=== PATIENT | male | born 1935 | race African-American/Black ===

== ENCOUNTER 2016-08-09 19:29 | Observation (INO) | payer OTHER ==
--- NOTE | ~2016-08-09 | DS ---
Unit #: [id number] #: [id number] Patient: KASANDRA CIFUENTES [id number] [address] [address] [id number] I MR#: [id number] NAME: KASANDRA CIFUENTES ROOM: 467 Age: 80 Sex: M Admission Date: 08/09/2016 : 1935 Discharge Date: Attending Physician: Ruthie Olvera M.D. Primary Care Physician: Oliva Hawkins M.D. DISCHARGE SUMMARY ADDENDUM DISCHARGE MEDICATIONS Please note the following additional medications at the time of discharge. 1. Flomax 0.4 mg p.o. daily. 2. Lovenox 80 mg subcutaneous b.i.d. To be discontinued when INR reaches 2.0. At the time of discharge INR 1.6. 3. Coumadin 6 mg p.o. daily. 4. Depakote sprinkles 125 mg p.o. b.i.d. 5. Keppra 500 mg p.o. b.i.d. 6. Lexapro 5 mg p.o. daily. 7. Trazodone 25 mg p.o. at nighttime. 8. Zofran 4 mg p.o. q.6 h. p.r.n. 9. Lipitor 80 mg p.o. daily. Dictated by... Ruthie Olvera M.D. ISN/gz TD: 08/11/2016 09:07 JOB #: [id number] DISCHARGE SUMMARY Page 1 of 1 X Ruthie Olvera MD X DISCHARGE SUMMARY
--- NOTE | ~2016-08-09 | CR72 ---
[facility] A Service of [facility] RADIOLOGY TEXT RESULTS PATIENT: KASANDRA CIFUENTES LOCATION: [place] [address] : 37 UNIT #: [id number] AGE: [address]: Ruthie Olvera MD SEX: M ORDER DR: [id number] [facility] [address] [place], [place] [address] [id number] I MR#: [id number] Acc #: [id number] NAME: KASANDRA CIFUENTES : 1935 SEX: M STUDY DATE/TIME: 08/09/2016 19:20 [facility] 33190 STUDY DESCRIPTION: CR Chest Single View Portable Attending Physician: Efraín Scott M.D. Ordering Physician: Kal New M.D. Primary Care Physician: Oliva Hawkins M.D. MEDICAL IMAGING REPORT This report is preliminary unless electronic signature is present EXAM Single view of the chest dated 08/09/2016 at 1920 hours COMPARISON Single view chest dated 05/13/2016 at 2243 hours. HISTORY Altered mental status, mild congestion, incoherent today. Patient was sent from [facility]. FINDINGS Single view of the chest was obtained. No acute cardiopulmonary disease. It is a poor inspiratory film. 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 Dictated by... Holly Wilde M.D. THIS IS AN ELECTRONICALLY VERIFIED REPORT Holly Wilde M.D. at 08/11/2016 1:42 PM CPR/mjs TD: 08/10/2016 13:36 JOB #: [id number] MEDICAL IMAGING REPORT Page 1 of 1 COPY
--- NOTE | ~2016-08-09 | HP ---
Unit #: [id number] #: [id number] Patient: KASANDRA CIFUENTES [id number] [address] [place], [place] [address] [id number] I MR#: [id number] NAME: KASANDRA CIFUENTES ROOM: 64666 Age: 80 Sex: M Admission Date: 08/09/2016 : 1935 Attending Physician: Efraín Scott M.D. Primary Care Physician: Oliva Hawkins M.D. HISTORY AND PHYSICAL CHIEF COMPLAINT Change in mental status, hypotension. DISCUSSION This is a 80-year-old gentleman, senior care resident with advanced dementia, unable to give me any history. Most of information obtained through the chart. History of left pontine CVA, insulin dependent diabetes, chronic kidney disease stage 3, history of A-fib, on Lovenox and Coumadin, dementia, seizure disorder, B12 deficiency, iron deficiency, anemia with history of Billroth-II, BPH, peripheral vascular disease, dyslipidemia, history of glaucoma. He was sent from senior care for evaluation of change in mental status. The patient was found to be hypotensive initially in the ER. Blood pressure 87/54, given bolus of normal saline. Blood pressure improved to 107, eventually been admitted for hypotension. His change in mental status has been improved since here in the emergency room. He is alert, awake now. He is denying any complaint but, again, he is a poor historian with a history of dementia. PAST MEDICAL HISTORY 1. History of left pontine CVA. 2. Insulin dependent diabetes. 3. Chronic kidney disease, stage 3. 4. History of A-fib. 5. Dementia. 6. History of seizures. 7. B12 deficiency. 8. Dyslipidemia. 9. Iron deficiency anemia. 10. History of EGD in June 2015. Shows postop surgical changes of Billroth-II. 11. History of peripheral vascular disease. 12. Dyslipidemia. 13. Benign prostatic hypertrophy. 14. Coronary artery disease. 15. History of glaucoma. PAST SURGICAL HISTORY 1. History of gastric bypass for ulcer, Billroth-II. 2. History of lumbar fusion. 3. History of angioplasty. SOCIAL HISTORY The patient is currently a senior care resident. No history of tobacco, alcohol or illicit drug use. Unit #: [id number] #: [id number] Patient: WHITE,KASANDRA FAMILY HISTORY Unknown. ALLERGIES Allergic to penicillin and tetracycline. MEDICATIONS Medications from senior care as followin. Desyrel 25 mg at bedtime. 2. Zofran 4 mg q.6 hours p.r.n. 3. NovoLog 6 units three times before meals. 4. Insulin glargine 16 units at bedtime. 5. Plavix 75 mg daily. 6. Coumadin 6 mg daily. 7. Multivitamin, one tablet daily. 8. Flomax 0.4 mg daily. 9. Atorvastatin 80 mg daily. 10. Keppra 500 b.i.d. 11. Depakote 150 mg twice a day. 12. Lovenox 80 units subcu twice a day until INR more than 2. 13. Rivastigmine 3 mg twice daily. 14. Macrobid 100 mg twice daily. 15. Folic acid 1 mg daily. 16. Namenda 28 mg daily. 17. Lexapro 5 mg daily. 18. Aspirin 81 mg daily. 19. Iron 150 mg daily. 20. Hydralazine 25 mg q.6 hours. 21. Amlodipine 5 mg daily. 22. Vitamin B12 0.4 mg daily. 23. Bumex 1 mg daily. REVIEW OF SYSTEMS Unable to get from patient secondary to his baseline dementia. PHYSICAL EXAMINATION GENERAL: Elderly male lying in the bed comfortably. CURRENT VITAL SIGNS: Temperature 97.1, heart rate 77, respiratory rate 17, blood pressure is 107/54. Oxygen is 96% on room air. GENERAL: He is alert, awake, oriented only to person, confused. HEENT: Pupils equal, reactive to light and accommodation. Head is normocephalic, atraumatic. HEART: S1, S2. Regular rate and rhythm. LUNGS: Clear to auscultation. No rhonchi, no wheezing. ABDOMEN: Soft, nontender, nondistended. PSYCHIATRIC: Alert, awake x1. Affect is flat. SKIN: No rash. EXTREMITIES: +1 positive edema. NEURO: Cranial nerves II-XII grossly intact. Patient is moving all extremities. DIAGNOSTIC STUDIES LABORATORY: Troponin less than 0.05. UA negative. Glucose 107. Chemistry - sodium 139, potassium 3.9, chloride 106, glucose 115, BUN 28, Unit #: [id number] #: [id number] Patient: WHITE,KASANDRA creatinine 2.2. LFT within normal limits. Lactic acid 1.9. INR is 1.1. White count 5, hemoglobin 9, hematocrit 31, platelets 188. Troponin less than 0.02. ABG - pH 7.41. ASSESSMENT AND PLAN 1. Change in mental status, most likely secondary to hypotension which is improved. 2. Hypotension with history of hypertension: Will monitor tonight. Hold medication, hydralazine, Norvasc. 3. History of left pontine cerebrovascular accident. 4. Insulin dependent diabetes. 5. Chronic kidney disease stage 3. 6. As per senior care, recurrent history of atrial fibrillation: Patient is being on Coumadin and Lovenox. 7. Dementia. 8. History of seizures, on Keppra. 9. History of dyslipidemia. 10. History of iron deficiency anemia. 11. History of peripheral vascular disease. 12. Benign prostatic hypertrophy. 13. Glaucoma. 14. Deep venous thrombosis prophylaxis: The patient is on Coumadin and Lovenox. Dictated by Ines Collazo TD: 08/10/2016 11:05 JOB #: [id number] HISTORY AND PHYSICAL Page 1 of 1 X X HISTORY AND PHYSICAL
--- NOTE | ~2016-08-09 | DS ---
Unit #: [id number] #: [id number] Patient: KASANDRA CIFUENTES [id number] [address] [address] [id number] I MR#: [id number] NAME: KASANDRA CIFUENTES ROOM: 46 Age: 80 Sex: M Admission Date: 08/09/2016 : 1935 Discharge Date: 08/11/2016 Attending Physician: Ruthie Olvera M.D. Primary Care Physician: Oliva Hawkins M.D. DISCHARGE SUMMARY REASON FOR ADMISSION Change in mental status/hypotension. HISTORY OF PRESENT ILLNESS/HOSPITAL COURSE The patient is a 80-year-old gentleman with end-stage dementia, [facility] resident, who presented secondary to mental status change per [facility] report as well as hypotension. In the ER, he was noted to have a blood pressure of 87/54. He was given appropriate IV fluid bolus. His blood pressure starting rising and, in fact, was much more stable over the first 24 hours. Since that time, has actually been restarted on some of his blood pressure medications. This morning, his blood pressure currently stands at 178/79. It was also noted that he did have decreased blood sugars with a blood sugar in the forties ranging into the sixties. He was appropriately treated with IV fluids as well as dextrose. At time of discharge, his insulin regimen will be modified. Please see below for complete details. There have been no other acute issues while the patient has been here in the hospital. His blood cultures did not yield any acute bacterial growth. A CT head was performed which did not show any acute process. At this point in time, he is currently clinically stable to be discharged back to the [facility] for [facility] care. FINAL DISCHARGE DIAGNOSES 1. Mental status change per [facility] report. 2. Prior history of left pontine cerebrovascular accident. 3. Insulin-dependent diabetes with hypoglycemia through hospital course. Medications adjusted. 4. Chronic kidney disease stage 3. 5. History of atrial fibrillation. 6. Dementia, end stage. 7. History of seizures. 8. B12 deficiency. 9. Hyperlipidemia. 10. Anemia. 11. Peripheral vascular disease. 12. Benign prostatic hypertrophy. 13. Coronary artery disease. 14. Hypotension on admission, now resolved. Unit #: [id number] #: [id number] Patient: WHITE,KASANDRA FINAL DISCHARGE MEDICATIONS 1. Norvasc 5 mg p.o. daily. 2. Namenda XR 28 mg p.o. daily. 3. Bumex 1 mg p.o. daily. 4. Hydralazine 25 mg p.o. q.6 p.r.n. 5. Toujeo SoloSTAR pen injection at bedtime 6 units subcu q.h.s. 6. NovoLog low dose sliding scale with insulin. 7. Accu-Cheks q.a.c., q.h.s. 8. Niferex 150 mg p.o. b.i.d. 9. Multivitamin daily. 10. Aspirin 81 mg p.o. daily. 11. Exelon 3 mg p.o. b.i.d. 12. Plavix 75 mg p.o. daily. 13. Folic acid 1 mg p.o. daily. 14. Vitamin B complex daily. DISCHARGE CONDITION Stable. DISCHARGE DISPOSITION [facility]. Dictated by... Ruthie Olvera M.D. TAVON/giovani TD: 08/11/2016 09:16 JOB #: [id number] DISCHARGE SUMMARY Page 1 of 1 X Ruthie Olvera MD X DISCHARGE SUMMARY
--- NOTE | ~2016-08-09 | EKG ---
PATIENT: KASANDRA CIFUENTES UNIT #: [id number] Ventricular Rate: 70 BPM Atrial Rate: 70 BPM P-R Interval: 184 ms QRS Duration: 98 ms Q-T Interval: 478 ms QTC Calculation(Bezet): 516 ms P [place]: 57 degrees Calculated R [place]: 15 degrees Calculated T [place]: 63 degrees Diagnosis Line: Normal sinus rhythm Diagnosis Line: Low voltage QRS Diagnosis Line: Nonspecific T wave abnormality Diagnosis Line: Prolonged QT Diagnosis Line: Abnormal ECG Diagnosis Line: When compared with ECG of 13-MAY-2016 23:49, Diagnosis Line: Nonspecific T wave abnormality, improved in Diagnosis Line: Lateral leads Diagnosis Line: QT has lengthened Diagnosis Line: Confirmed by THERESA AMADO MD ([id number]) on 08/10/2016 Diagnosis Line: 7:22:02 AM INTERPRETING MD: ANEUDY PATEL
--- NOTE | ~2016-08-09 | CT71 ---
[facility] A Service of [facility] RADIOLOGY TEXT RESULTS PATIENT: KASANDRA CIFUENTES LOCATION: [facility] [id number] : 37 UNIT #: [id number] AGE: [address]: Ruthie Olvera MD SEX: M ORDER DR: [id number] [facility] [address] [place], [place] [address] [id number] I MR#: [id number] #: [id number] NAME: KASANDRA CIFUENTES : 1935 SEX: M STUDY DATE/TIME: 08/09/2016 20:07 UNIT: [facility] ROOM: 04361 STUDY DESCRIPTION: CT Head Wo Contrast Attending Physician: Efraín Scott M.D. Ordering Physician: Kal New M.D. Primary Care Physician: Oliva Hawkins M.D. MEDICAL IMAGING REPORT This report is preliminary unless electronic signature is present EXAM CT head without contrast, 08/09/[address] head without contrast dated 05/13/16 HISTORY Unresponsive from 1800 hours today. Low blood pressure, weakness and lethargy. TECHNIQUE This CT exam was performed with one or more of the following radiation dose reduction techniques: automatic exposure control, adjustment of mA and/or kV according to patient size, and iterative reconstruction. FINDINGS CT of the head was obtained without contrast in the axial plane as per the protocol. No acute intracranial hemorrhage, hydrocephalous or midline shift is seen. There is mild hypodensity noted in the periventricular white matter, particularly in bifrontal lobes, stable. No hydrocephalous or midline shift is seen. Small hypodensity measuring less than 1 cm is noted in the right lentiform nucleus, stable. A tiny one noted in the right thalamus is not as well seen on the current study, likely relating to difference in slice selection. There are linear hyperdensities noted within the scalp soft tissues, likely vascular calcifications. [place] of [place] arteries demonstrate vascular atherosclerotic calcifications too. Mild nasal septal deviation is noted to the right. Paranasal sinuses and orbits with the ocular structures do not demonstrate any significant abnormality. IMPRESSION 1. No demonstrable acute intracranial abnormality. [facility] A Service of [facility] RADIOLOGY TEXT RESULTS PATIENT: KASANDRA CIFUENTES LOCATION: [facility] [id number] : 37 UNIT #: [id number] AGE: [address]: Ruthie Olvera MD SEX: M ORDER DR: 2. Stable hypodensities are noted in the white matter, particularly in the paraventricular region and in the right lentiform nucleus. They could be related to chronic microvascular ischemic change. 3. There appears to be mild asymmetrical soft tissue swelling in the left parietal scalp suggestive of mild inflammatory change. It was also seen in the CT head from 3 months ago, and is probably chronic. Dictated by... Holly Wilde M.D. THIS IS AN ELECTRONICALLY VERIFIED REPORT Holly Wilde M.D. at 08/11/2016 1:45 PM CPR/reyes TD: 08/10/2016 14:58 JOB #: [id number] MEDICAL IMAGING REPORT Page 1 of 1 COPY
[2016-08-09 19:07] LABS: ARTERIAL BLD GAS O2 SATURATION 96.2 % (90.0-100.0); ARTERIAL BLOOD GAS CARBOXY HB 0.2 %sat (0.0-9.0); ARTERIAL BLOOD GAS HCO3 24.2 mmol/L; ARTERIAL BLOOD GAS PCO2 37.5 mmHg (35.0-45.0); ARTERIAL BLOOD GAS pH 7.418 (7.350-7.450)
[2016-08-09 19:08] LABS: ARTERIAL BLOOD GAS ALLEN TEST NORMAL; ARTERIAL BLOOD GAS ART SITE LEFT RADIAL; ARTERIAL BLOOD GAS DELIVERY ROOM AIR; ARTERIAL DRAW? YES
[2016-08-09 19:22] LABS: POC - CKMB 2.2 ng/mL (0.0-7.9); POC - TROPONIN <0.05 ng/mL (<=0.05)
[2016-08-09 19:25] LABS: BASOPHIL% 0.4 % (0-2.5); EOSINOPHIL# 0.1 X10e3 (0-0.7); EOSINOPHIL% 1.3 % (0.0-7.0); HEMATOCRIT 31.7 % (38.0-50.0); HEMOGLOBIN 9.9 gm/dL (13.0-16.0); LYMPHOCYTE# 1.9 X10e3 (1.0-3.5); LYMPHOCYTE% 32.4 % (17.0-45.0); MEAN CELL VOLUME 72.5 FL (83-96); MEAN CORPUSCULAR HEMOGLOBIN 22.6 PG (28-34); MEAN CORPUSCULAR HGB CONC 31.2 g/dL (30-36); MEAN PLATELET VOLUME 10.6 FL (6.5-11.5); MONOCYTE# 0.6 X10e3 (0-1.0); MONOCYTE% 10.3 % (3.0-12.0); NEUTROPHIL# 3.3 X10e3 (1.5-7.1); NEUTROPHIL% 55.6 % (40-75); PLATELET COUNT 188 X10e3 (140-420); RED BLOOD COUNT 4.37 X10e (3.90-5.60); RED CELL DISTRIBUTION WIDTH 16.4 % (11.0-15.5); WHITE BLOOD COUNT 5.9 X10e3 (4.0-10.5)
[2016-08-09 19:26] LABS: DIFF IND NO
[~2016-08-09 19:29] MED LIST: ASPIRIN81 MG PO; ATIVAN0.5 M1 IM; BALANCED B-1001 TA1 PO; BUMEX2 MG PO; CRANBERRY PO; DEPAKOTE250 MG PO; DESYREL50 MG PO; ESCITALOPRAM OX10 MG PO; EXELON1 EACH TD; FLOMAX0.4 M1 PO; FOLIC ACID1 MG PO; NU IRON PO; RISPERDAL0.25 MG PO; SIMBRINZA 1%-0.28 ML OU
[2016-08-09 19:38] LABS: INR 1.1; PARTIAL THROMBOPLASTIN TIME 33.2 SECONDS (23.5-31.3); PROTHROMBIN TIME (PATIENT) 11.5 SECONDS (9.6-11.5)
[2016-08-09 19:50] LABS: ALBUMIN SERUM 3.4 g/dL (3.5-5.0); ALKALINE PHOSPHATASE 88 U/L (32-92); ALT (SGPT) 54 U/L (10-40); AST (SGOT) 37 U/L (10-42); BILIRUBIN,TOTAL 0.3 mg/dL (0.2-2.0); BLOOD UREA NITROGEN 28 mg/dL (9-23); BUN/CREATININE RATIO 12.72; CALCIUM SERUM 8.1 mg/dL (8.4-10.2); CARBON DIOXIDE 24 mmol/L (22-31); CHLORIDE 106 mmol/L (100-111); CREATININE SERUM 2.2 mg/dL (0.6-1.4); DEPAKENE (VALPROIC ACID) 11 ug/mL (50-125); GLOM FILT RATE Estimated 32.1 mL/min (>60); GLUCOSE FASTING 115 mg/dL (70-110); POTASSIUM 3.9 mmol/L (3.5-5.1); PROTEIN TOTAL SERUM 6.6 g/dL (6.0-8.3); SODIUM 139 mmol/L (135-145)
[2016-08-09 19:51] LABS: BILIRUBIN, DIRECT <0.1 mg/dL (0.0-0.2); BILIRUBIN,INDIRECT 0.2 mg/dL (0.0-0.9)
[2016-08-09 19:52] LABS: URINE SOURCE CLEAN CATCH
[2016-08-09 19:56] LABS: URINE APPEARANCE CLEAR; URINE BILIRUBIN NEG (NEG); URINE BLOOD NEG (NEG); URINE COLOR YELLOW; URINE GLUCOSE NEG (NEG); URINE KETONE NEG (NEG); URINE LEUKOCYTE ESTERASE NEG (NEG); URINE NITRATE NEG (NEG); URINE PROTEIN 2+ (NEG); URINE SPECIFIC GRAVITY 1.012 (1.003-1.035); URINE UROBILINOGEN 0.2 MG/DL (NEG)
[2016-08-09 19:58] LABS: URBCS1 AUWI 0-2 /[HPF] (0-2); URINE BACTERIA AUWI NEG (NEGATIVE); URINE SQUAMOUS EPITHELIAL CELL NONE SEEN /[HPF]; UWBCS1 AUWI 0-2 (0-5)
[2016-08-09 20:04] LABS: CULTURE INDICATED? NO
[2016-08-09 20:43] LABS: POC - CKMB 1.7 ng/mL (0.0-7.9); POC - TROPONIN <0.05 ng/mL (<=0.05)
[2016-08-09] MEDS ORDERED: HYDRALAZINE HCL25 MG PO (21:21)
[2016-08-09] MEDS ORDERED: AMLODIPINE BESYL5 MG PO (21:21)
[2016-08-09] MEDS ORDERED: COMPLEX B-1000.4 MG PO (21:22)
[2016-08-09] MEDS ORDERED: BUMETANIDE1 MG PO (21:23)
[2016-08-09] MEDS ORDERED: BRIMONIDINE TAR10 ML OU (21:23)
[2016-08-09] MEDS ORDERED: FOLIC ACID1 MG PO (21:23)
[2016-08-09] MEDS ORDERED: NAMENDA XR28 MG PO (21:24)
[2016-08-09] MEDS ORDERED: ASPIRIN81 M2 PO (21:24)
[2016-08-09] MEDS ORDERED: LEXAPRO5 MG PO (21:24)
[2016-08-09] MEDS ORDERED: FERREX 150 FOR1 EACH PO (21:25)
[2016-08-09] MEDS ORDERED: KEPPRA500 M2 PO (21:29)
[2016-08-09] MEDS ORDERED: DEPAKOTE SPRIN125 MG PO (21:29)
[2016-08-09] MEDS ORDERED: RIVASTIGMINE3 MG PO (21:30)
[2016-08-09] MEDS ORDERED: LOVENOX80 MG/0.8 INJ (21:30)
[2016-08-09] MEDS ORDERED: NITROFURANTOIN100 M3 PO (21:31)
[2016-08-09] MEDS ORDERED: COUMADIN6 MG PO (21:31)
[2016-08-09] MEDS ORDERED: CLOPIDOGREL75 MG PO (21:31)
[2016-08-09] MEDS ORDERED: FLOMAX0.4 M1 PO (21:32)
[2016-08-09] MEDS ORDERED: MULTI VITAMIN1 EACH PO (21:32)
[2016-08-09] MEDS ORDERED: ATORVASTATIN CA80 MG PO (21:33)
[2016-08-09] MEDS ORDERED: DESYREL50 MG PO (21:34)
[2016-08-09] MEDS ORDERED: ONDANSETRON HCL4 M1 PO (21:42)
[2016-08-09] MEDS ORDERED: NOVOLOG100 U/ML SUBQ (21:44)
[2016-08-09] MEDS ORDERED: TOUJEO SOL300 UNIT/1 SUBQ (21:44)
[2016-08-10 04:51] LABS: BASOPHIL% 0.2 % (0-2.5); EOSINOPHIL# 0.1 X10e3 (0-0.7); EOSINOPHIL% 0.9 % (0.0-7.0); HEMATOCRIT 27.5 % (38.0-50.0); HEMOGLOBIN 8.6 gm/dL (13.0-16.0); LYMPHOCYTE# 1.5 X10e3 (1.0-3.5); LYMPHOCYTE% 25.7 % (17.0-45.0); MEAN CELL VOLUME 71.5 FL (83-96); MEAN CORPUSCULAR HEMOGLOBIN 22.4 PG (28-34); MEAN CORPUSCULAR HGB CONC 31.4 g/dL (30-36); MEAN PLATELET VOLUME 10.2 FL (6.5-11.5); MONOCYTE# 0.6 X10e3 (0-1.0); MONOCYTE% 10.1 % (3.0-12.0); NEUTROPHIL# 3.8 X10e3 (1.5-7.1); NEUTROPHIL% 63.1 % (40-75); PLATELET COUNT 156 X10e3 (140-420); RED BLOOD COUNT 3.84 X10e (3.90-5.60); RED CELL DISTRIBUTION WIDTH 16.3 % (11.0-15.5)
[2016-08-10 04:52] LABS: DIFF IND NO
[2016-08-10 05:33] LABS: BUN/CREATININE RATIO 13.68; CALCIUM SERUM 7.9 mg/dL (8.4-10.2); CREATININE SERUM 1.9 mg/dL (0.6-1.4); GLOM FILT RATE Estimated 38.3 mL/min (>60); POTASSIUM 3.8 mmol/L (3.5-5.1)
[2016-08-11 03:57] LABS: BASOPHIL% 0.4 % (0-2.5); EOSINOPHIL# 0.1 X10e3 (0-0.7); HEMATOCRIT 28.8 % (38.0-50.0); LYMPHOCYTE# 1.8 X10e3 (1.0-3.5); LYMPHOCYTE% 33.9 % (17.0-45.0); MEAN CELL VOLUME 71.7 FL (83-96); MEAN CORPUSCULAR HEMOGLOBIN 22.4 PG (28-34); MEAN CORPUSCULAR HGB CONC 31.3 g/dL (30-36); MEAN PLATELET VOLUME 10.9 FL (6.5-11.5); MONOCYTE# 0.5 X10e3 (0-1.0); MONOCYTE% 8.8 % (3.0-12.0); NEUTROPHIL# 2.9 X10e3 (1.5-7.1); NEUTROPHIL% 54.9 % (40-75); PLATELET COUNT 179 X10e3 (140-420); RED BLOOD COUNT 4.01 X10e (3.90-5.60); RED CELL DISTRIBUTION WIDTH 16.3 % (11.0-15.5); WHITE BLOOD COUNT 5.3 X10e3 (4.0-10.5)
[2016-08-11 03:58] LABS: DIFF IND NO
[2016-08-11 04:11] LABS: INR 1.6; PROTHROMBIN TIME (PATIENT) 16.7 SECONDS (9.6-11.5)
[2016-08-11 04:24] LABS: BUN/CREATININE RATIO 13.33; CALCIUM SERUM 8.2 mg/dL (8.4-10.2); CREATININE SERUM 1.8 mg/dL (0.6-1.4); GLOM FILT RATE Estimated 40.9 mL/min (>60); POTASSIUM 4.1 mmol/L (3.5-5.1)
== END 2016-08-11 12:44 ==
LOC: CED 19:29 → CEDOF 22:00 → C4C 08-10 17:25
PROVIDERS: Emergency Medicine; Family Medicine; Internal Medicine
DX: R41.82 Altered mental status, unspecified (principal); Z86.73 Personal history of transient ischemic attack (TIA), and cerebral infarction without residual deficits; E11.649 Type 2 diabetes mellitus with hypoglycemia without coma; Z79.4 Long term (current) use of insulin; N18.3 Chronic kidney disease, stage 3 (moderate); F03.90 Unspecified dementia, unspecified severity, without behavioral disturbance, psychotic disturbance, mood disturbance, and anxiety; E53.8 Deficiency of other specified B group vitamins; E78.5 Hyperlipidemia, unspecified; D64.9 Anemia, unspecified; I73.9 Peripheral vascular disease, unspecified; N40.0 Benign prostatic hyperplasia without lower urinary tract symptoms; I25.10 Atherosclerotic heart disease of native coronary artery without angina pectoris; I95.9 Hypotension, unspecified; I48.91 Unspecified atrial fibrillation; Z79.01 Long term (current) use of anticoagulants; Z79.82 Long term (current) use of aspirin; Z79.02 Long term (current) use of antithrombotics/antiplatelets; H40.9 Unspecified glaucoma; Z88.0 Allergy status to penicillin; Z88.1 Allergy status to other antibiotic agents
CPT/HCPCS: 36415; 36600; 70450; 71010; 80048; 80076; 80164; 81003; 82553; 82607; 82803; 82947; 83036; 83605; 84484; 85025; 85610; 85730; 87040; 92610; 93005; 96372; 99285; G0378; G8996-GN; G8997-GN; G8998-GN; J1630; J1650